=== PATIENT | female | born 1960 ===

== ENCOUNTER 2023-03-20 13:44 | Outpatient (CLI) | payer BC ==
[2023-03-20] VITALS (22 sets, daily range): BP systolic 97–123; BP diastolic 64–80; PULSE 52–79
== END 2023-03-20 23:59 | disposition home or self-care (01) ==
LOC: CARD DIAG 13:44
PROVIDERS: ATTEND Internal Medicine Cardiovascular Disease
DX: R55 Syncope and collapse (principal)
CPT/HCPCS: 93660